=== PATIENT | female | born 1990 | race Caucasian/White ===

== ENCOUNTER → 2025-03-02 07:50 | Outpatient (REF) | payer OTHER, SELFPAY | LOC: RAD 07:50 | PROVIDERS: ATTENDING PHYSICIAN Internal Medicine Endocrinology, Diabetes & Metabolism | DX: E10.21 Type 1 diabetes mellitus with diabetic nephropathy (principal) | CPT/HCPCS: 78264; A9541 ==

== ENCOUNTER → 2025-06-18 13:37 | Outpatient (REF) | payer OTHER, SELFPAY ==
[2025-06-18 14:27] LABS: Hematocrit 42.5 % (37.0-47.0); Hemoglobin 13.6 g/dL (12.0-16.0); Mean Corp Hgb Conc. 32.0 g/dL (33.0-37.0); Mean Corpuscular Volume 95.3 fL (81.0-99.0); Nucleated Red Blood Cells % 0 %; Platelet Count 137 10^3/uL (130-400); Red Cell Dist. Width 11.3 % (11.5-14.5)
[2025-06-18 15:22] LABS: Vitamin D, 25-OH*** 32.0 ng/mL (30-80)
[2025-06-18 15:27] LABS: Urine Character Clear (Clear)
[2025-06-18 15:29] LABS: ALT (SGPT) 35 U/L (0-35); AST (SGOT) 30 U/L (14-36); Albumin 4.3 g/dl (3.5-5.0); Alkaline Phosphatase 83 U/L (38-126); Blood Urea Nitrogen 19 mg/dl (7-17); Calcium 9.6 mg/dl (8.4-10.2); Carbon Dioxide 25 mmol/L (22-30); Chloride 106 mmol/L (98-107); Glucose 79 mg/dl (70-99); HDL Cholesterol 53 mg/dl; LDL Cholesterol, Calculated 125 mg/dl; Magnesium 1.9 mg/dl (1.6-2.3); Potassium 4.5 mmol/L (3.5-5.1); Sodium 137 mmol/L (135-145); Total Protein 7.2 g/dl (6.3-8.2); Uric Acid 4.4 mg/dl (2.5-6.2); Very Low Density Lipoprotein 11 mg/dl (0-30); eGFR > 60.00
[2025-06-18 17:14] LABS: Urine Squamous Cell >30 /LPF (Few); Urine Urothelial Cell 0-2 /LPF (FEW)
[2025-06-19 10:04] LABS: Glycohemoglobin (HgbA1c) 7.0 % (4.0-5.9)
== END ==
LOC: REG 13:37
PROVIDERS: ATTENDING PHYSICIAN Internal Medicine Nephrology
DX: N18.30 Chronic kidney disease, stage 3 unspecified (principal); R80.9 Proteinuria, unspecified; E55.9 Vitamin D deficiency, unspecified; E78.5 Hyperlipidemia, unspecified; E10.10 Type 1 diabetes mellitus with ketoacidosis without coma; N25.81 Secondary hyperparathyroidism of renal origin
CPT/HCPCS: 36415; 80053; 80061; 81003; 81015; 82306; 82570; 83036; 83735; 83970; 84100; 84156; 84550; 85025; 87086